=== PATIENT | male | born 1970 ===

== ENCOUNTER 2018-10-25 09:59 | Emergency (ER) | payer OTHER ==
[~2018-10-25] VITALS: Ht 182.9 cm; Wt 102.1 kg
[2018-10-25] MEDS ORDERED: TOPROL XL100 M1 (10:27)
[2018-10-25] MEDS ORDERED: LOSARTAN POTAS100 MG (10:27)
== END 2018-10-25 12:50 | disposition home or self-care (01) ==
LOC: ER 09:59
DX: M75.21 Bicipital tendinitis, right shoulder (principal)